=== PATIENT | female | born 1935 | race Caucasian/White ===

== ENCOUNTER 2017-12-07 10:53 | Day surgery (SDC) | payer MEDICARE, OTHER ==
[~2017-12-07 10:53] MED LIST: Cefuroxime 10 MG/ML SYRINGE EYELF SCH; Lidocaine 1% PF 2 ML SDV INJECT SCH; Pilocarpine 4% Ophth Soln 15 ML Bot EYELF SCH
[2017-12-07] MEDS: Ofloxacin 0.3% Ophth Soln 5 ML Bottle EYELF SCH ×3 (11:09→12:44)
[2017-12-07] MEDS: Brimonidine 0.2% Ophth Soln 5 ML Bottle EYELF SCH ×3 (11:13→12:44)
--- NOTE | 2017-12-07 11:17 | PCM.PREANE ---
Preanesthetic Assessment - Procedure Proposed Procedure: left eye cataract extraction with implant - Anesthesia/Transfusion/Family Hx Anesthesia History: Prior Anesthesia Without Reaction Family History of Anesthesia Reaction: No Transfusion History: No Prior Transfusion(s) Intubation History: Unknown - Review of Systems General: No Symptoms Pulmonary: No Symptoms Cardiovascular: No Symptoms Gastrointestinal: No Symptoms Neurological: No Symptoms Other: Reports: None - Physical Assessment NPO Status Date: 12/06/17 NPO Status Time: 21:00 O2 Sat by Pulse Oximetry: 97 Respiratory Rate: 16 Vital Signs: Last Vital Signs Temp 36.4 C 12/07/17 10:55 Pulse 62 12/07/17 10:55 Resp 16 12/07/17 10:55 BP 128/64 12/07/17 10:55 Pulse Ox 97 12/07/17 10:55 ASA Class: 2 Mental Status: Alert & Oriented x3 Airway Class: Mallampati = 1 Dentition: Reports: Dentures (uppers and lowers ) Thyro-Mental Finger Breadths: 3 Mouth Opening Finger Breadths: 5 ROM/Head Extension: Full Lungs: Clear to Auscultation, Normal Respiratory Effort Cardiovascular: Regular Rate, Regular Rhythm - Allergies Allergies/Adverse Reactions: Allergies Allergy/AdvReac Type Severity Reaction Status Date / Time Sulfa (Sulfonamide Allergy Cannot Verified 12/06/17 14:44 Antibiotics) Remember - Blood Blood Available: No - Anesthesia Plan Pre-Op Medication Ordered: None - Acknowledgements Anesthesia Type Planned: MAC Pt an Appropriate Candidate for the Planned Anesthesia: Yes Alternatives and Risks of Anesthesia Discussed w Pt/Guardian: Yes Pt/Guardian Understands and Agrees with Anesthesia Plan: Yes PreAnesthesia Questionnaire - HOME MEDS Home Medications: Home Meds Anastrozole [Arimidex] 1 mg PO DAILY 12/06/17 [History] Gemfibrozil 600 mg PO BID 12/06/17 [History] Lisinopril 5 mg PO DAILY 12/06/17 [History] Omeprazole 20 mg PO DAILY 12/06/17 [History] - CURRENT (IN HOUSE) MEDS Current Meds: Current Medications Brimonidine Tartrate (Alphagan 0.2% Ophth Soln) 0 ml EYELF ASDIRECTED PEDRO Stop: 12/07/17 18:00 Cefuroxime Sodium (Zinacef) 0 mg EYELF ASDIRECTED PEDRO Stop: 12/07/17 18:00 Lidocaine HCl (Xylocaine-Mpf 1%) 0 ml INJECT ASDIRECTED PEDRO Stop: 12/07/17 18:00 Ofloxacin (Ocuflox 0.3% Ophth Soln) 0 ml EYELF ASDIRECTED PEDRO Stop: 12/07/17 18:00 Last Admin: 12/07/17 11:09 Dose: 1 drop Phenylephrine HCl (Daquan-Synephrine 2.5% Ophth Soln) 0 ml EYELF ASDIRECTED PEDRO Stop: 12/07/17 18:00 Pilocarpine HCl (Pilocar 4% Ophth Soln) 0 ml EYELF ASDIRECTED PEDRO Stop: 12/07/17 18:00 Tetracaine HCl (Tetracaine 0.5% Steri-Unit Omayra) 0 ml EYELF ASDIRECTED PEDRO Stop: 12/07/17 18:00 Tropicamide (Mydriacyl 1% Ophth Soln) 0 ml EYELF ASDIRECTED PEDRO Stop: 12/07/17 18:00
[2017-12-07] MEDS: Phenylephrine 2.5% Ophth Soln 2 ML Bot EYELF SCH ×5 (11:18→12:24)
[2017-12-07] MEDS: Tropicamide 1% Ophth Soln 3 ML Bottle EYELF SCH ×4 (11:21→11:58)
[2017-12-07] MEDS: Tetracaine HCl/PF 0.5% 4 ML Bottle EYELF SCH ×2 (12:08→12:35)
--- NOTE | 2017-12-07 12:53 | PCM48HPAN ---
Post Anesthesia Note - EVALUATION WITHIN 48HRS OF ANESTHETIC Vital Signs in Normal Range: Yes Patient Participated in Evaluation: Yes Respiratory Function Stable: Yes Airway Patent: Yes Cardiovascular Function Stable: Yes Hydration Status Stable: Yes Pain Control Satisfactory: Yes Nausea and Vomiting Control Satisfactory: Yes Mental Status Recovered: Yes Pulse Rate: 55 SaO2: 95 Resp Rate: 16 Temperature: 37 C Blood Pressure: 104/64
== END 2017-12-07 12:55 | disposition home or self-care (01) ==
LOC: JD.SDS 10:53
PROVIDERS: ATTEND Ophthalmology
DX: H25.812 Combined forms of age-related cataract, left eye (principal); H35.371 Puckering of macula, right eye; H02.831 Dermatochalasis of right upper eyelid; H16.223 Keratoconjunctivitis sicca, not specified as Sjogren's, bilateral; E78.00 Pure hypercholesterolemia, unspecified; I10 Essential (primary) hypertension; M19.90 Unspecified osteoarthritis, unspecified site; C50.919 Malignant neoplasm of unspecified site of unspecified female breast; Z79.899 Other long term (current) drug therapy; Z90.10 Acquired absence of unspecified breast and nipple; Z90.710 Acquired absence of both cervix and uterus; Z90.89 Acquired absence of other organs; Z96.659 Presence of unspecified artificial knee joint; Z98.41 Cataract extraction status, right eye; Z96.1 Presence of intraocular lens; Z98.890 Other specified postprocedural states; Z83.518 Family history of other specified eye disorder
CPT/HCPCS: A9270-GY; C1780; J0697; J2001